=== PATIENT | female | born 1985 | race Caucasian/White ===

== ENCOUNTER 2023-07-15 19:15 | Emergency (ER) | payer OTHER ==
[~2023-07-15] VITALS: Ht 160 cm; Wt 70.4 kg
[2023-07-15 19:39] VITALS: BP 133/93; PULSE 74; TEMP 98.2; O2SAT 100
[2023-07-15 20:24] VITALS: RESP 18
--- NOTE | 2023-07-15 20:29 | NUR ---
PT REPORTS BEING 5 WEEKS . PT STATES SHE IS HAVING POTENTIAL RIGHT OVARIAN PAIN 04/16. PT STATES LIGHT SPOTTING THE WEEK SHE EXPECTED HER PERIOD. NO OTHER S/S OR COMPLAINTS.
[2023-07-15 22:23] LABS: BILIRUBIN,URINE NEGATIVE (Neg); CLARITY,URINE SLIGHTLY CLOUDY (Clear); COLOR,URINE STRAW (Yellow); GLUCOSE, URINE NEGATIVE (Neg); KETONES,URINE NEGATIVE (Neg); LEUKOCYTE ESTERASE ,URINE NEGATIVE (Neg); NITRITES, URINE NEGATIVE (Neg); OCCULT BLOOD,URINE NEGATIVE (Neg); PROTEIN,URINE NEGATIVE (Neg); UROBILINOGEN,URINE 0.2 E.U/dL (0.2-1.0)
[2023-07-15 22:39] LABS: UA COLLECTION TYPE CLN CATCH MIDSTREAM
[2023-07-15 22:40] LABS: SQUAMOUS EPITHELIAL CELL,UR MANY /LPF (FEW)
[2023-07-15 22:41] LABS: BACTERIA,URINE FEW /HPF (Neg); RBC,URINE NONE SEEN /HPF (0-2); WBC,URINE 0-4 /HPF (0-4)
== END 2023-07-15 21:47 | disposition home or self-care (01) ==
LOC: ER 19:17
DX: Z03.79 Encounter for other suspected maternal and fetal conditions ruled out (principal); R10.31 Right lower quadrant pain
CPT/HCPCS: 36415; 76801; 81001; 84702; 93976; 99284